=== PATIENT | male | born 1985 | race Caucasian/White ===

== ENCOUNTER → 2017-04-10 | Outpatient (REF) | LOC: WSOH 12:41 | DX: Z02.89 Encounter for other administrative examinations (principal) ==

== ENCOUNTER → 2022-04-29 | Outpatient (CLI) | payer BC | LOC: COL.RAD 08:37 | DX: M47.812 Spondylosis without myelopathy or radiculopathy, cervical region (principal); M47.813 Spondylosis without myelopathy or radiculopathy, cervicothoracic region; M48.02 Spinal stenosis, cervical region; M48.03 Spinal stenosis, cervicothoracic region ==